=== PATIENT | male | born 1955 | race Hispanic/Latino ===

== ENCOUNTER → 2019-08-01 | Outpatient (CLI) | payer MEDICARE ==
[~2019-08-01] MED LIST: GLIPIZIDE5 MG PO; IOPAMIDOL 370 MG/ML 200 ML INFUS..BTL INJ ONE; METFORMIN HCL1000 MG PO; NEXIUM40 MG PO; SODIUM CHLORIDE 0.9% 50ML 50 ML ONE; VASOTEC10 M1 PO; ZOLOFT50 MG PO
[2019-08-01 09:03] LABS: BLOOD UREA NITROGEN 15 mg/dL (7-26); BUN/CREATININE RATIO 14 (6-25); CREATININE, SERUM 1.09 mg/dL (0.72-1.25); EST GLOMERULAR FILTRATION RATE > 60 ML/MIN (60-)
--- NOTE | 2019-08-01 16:01 | Diagnostic Imaging Report ---
History:Left year infection for 2 months Comparison studies:None Technique: Axial, coronal and sagittal images through the temporal bones. Intravenous contrast: Yes Dose modulation, iterative reconstruction, and/or weight based adjustment of the mA/kV was utilized to reduce the radiation dose to as low as reasonably achievable. Findings: Right: External auditory canal: Clear and patent Tympanic membrane: Barely visualized and unremarkable. Middle ear and mastoid cavities: Clear. Mastoid air cells: Clear Ossicles: The malleus, incus and stapes are grossly intact. Cochlea, vestibule, internal acoustic canals: Grossly intact. Semicircular canals: Grossly intact. Not dehiscent. Endolymphatic duct: Normal in size. No dilated. Petrous apex: Unremarkable, not aerated. Facial canal: No abnormalities in the labyrinthine, tympanic or mastoid segments. Left: External auditory canal: Clear and patent Tympanic membrane: Barely visualized and unremarkable. Middle ear and mastoid cavities: Clear. Mastoid air cells: Partial opacification of few air cells Ossicles: The malleus, incus and stapes are grossly intact. Cochlea, vestibule, internal acoustic canals: Grossly intact. Semicircular canals: Grossly intact. Not dehiscent. Endolymphatic duct: Normal in size. No dilated. Petrous apex: Unremarkable, not aerated. Facial canal: No abnormalities in the labyrinthine, tympanic or mastoid segments. IMPRESSION: Right temporal bone: 1. Normal Left temporal bone: 1. Minimal nonspecific inflammatory changes of the mastoid air cells 2. No other abnormality Signed by: DR Jomar Harrell M.D. on 08/01/2019 3:58 PM
== END ==
LOC: CT 08:13
PROVIDERS: ATTEND Otolaryngology
DX: H70.12 Chronic mastoiditis, left ear (principal)
CPT/HCPCS: 36415; 70481; 82565; 84520; Q9967

== ENCOUNTER 2020-03-30 18:06 | Observation (INO) | payer MEDICARE, OTHER ==
[~2020-03-30] VITALS: Ht 162.6 cm; Wt 78.9 kg
[~2020-03-30 18:06] MED LIST changes: -IOPAMIDOL 370 MG/ML 200 ML INFUS..BTL INJ ONE; -SODIUM CHLORIDE 0.9% 50ML 50 ML ONE
--- OUTSIDE RECORDS SUMMARY | 2020-03-30 18:08 | XMS REPORT ---
Author Author [facility] t Organization [facility] Address [address] [place] [id number] Phone Unavailable Care Team Providers Care Political Researcher Name Role Phone KYLAH LEACH Unavailable Payers Payer Name Policy Type Policy Number Effective Date Expiration Date S ource Problems This patient has no known problems. Allergies, Adverse Reactions, Alerts Allergy Name Allergy Type Status Severity Reaction(s) Onset Date Inacti ve Date Treating Clinician Comments Source No Known Allergies DA Active U 2019-07-08 00:00:00 [facility] Medications This patient has no known medications. Procedures This patient has no known procedures. Results Test Description Test Time Test Comments Results Result Comments Source [facility] W 2019-08-01 15:54:00 [facility] [address] [place], [place] [address] Patient Name: SUE GAMING MR #: [id number] : 1955 Age/Sex: 64/M Req #: [id number] Adm Physician: Ordered by: HAYLEE CHUN, KYLAH CHUN Report #: [id number] Location: [place] Room/Bed: Procedure: [id number] CT/CT IACS W Exam Date: 08/01/19 Exam Time: 0920 REPORT STATUS: Signed History:Left year infection for 2 months Comparison studies:None Technique: Axial, coronal and sagittal images through the temporal bones. Intravenous contrast: Yes Dose modulation, iterative reconstruction, and/or weight based adjustment of the mA/kV was utilized to reduce the radiation dose to as low as reasonably achievable. Findings: Right: External auditory canal: Clear and patent Tympanic membrane: Barely visualized and unremarkable. Middle ear and mastoid cavities: Clear. Mastoid air cells: Clear Ossicles: The malleus, incus and stapes are grossly intact. Cochlea, vestibule, internal acoustic canals: Grossly intact. Semicircular canals: Grossly intact. Not dehiscent. Endolymphatic duct: Normal in size. No dilated. Petrous apex: Unremarkable, not aerated. Facial canal: No abnormalities in the labyrinthine, tympanic or mastoid segments. Left: External auditory canal: Clear and patent Tympanic membrane: Barely visualized and unremarkable. Middle ear and mastoid cavities: Clear. Mastoid air cells: Partial opacification of few air cells Ossicles: The malleus, incus and stapes are grossly intact. Cochlea, vestibule, internal acoustic canals: Grossly intact. Semicircular canals: Grossly intact. Not dehiscent. Endolymphatic duct: Normal in size. No dilated. Petrous apex: Unremarkable, not aerated. Facial canal: No abnormalities in the labyrinthine, tympanic or mastoid segments. IMPRESSION: Right temporal bone: 1. Normal Left temporal bone: 1. Minimal nonspecific inflammatory changes of the mastoid air cells 2. No other abnormality Signed by: DR Jomar Harrell M.D. on 08/01/2019 3:58 PM Dictated By: JOMAR VEGA MD [id number] Transcribed By: JANY on 08/01/19 704 COPY TO: KYLAH LEACH
--- NOTE | 2020-03-30 18:32 | Emergency Department Note ---
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 Any updates have been documented here. (KASSANDRA SCHMITT NP) Past Medical History Recent Fever: No Clinical Suspicion of Infectio: No New/Unexplained Change in Ment: No Past Medical History: Diabetes Other Surgery: R SHOULDER, I&D ABSCESS TO L ARM (KASSANDRA SCHMITT NP) Social History Smoking Cessation: Never Smoker Alcohol Use: None Any Illegal Drug Use: No TB Exposure/Symptoms: No Physically hurt or threatened: No (KASSANDRA SCHMITT NP) Family History Family history of heart diseas: No (KASSANDRA SCHMITT NP) Other Last Tetanus: UNK Any Pre-Existing Lines (PICC,: No (KASSANDRA SCHMITT NP) Review of Systems Review of Systems Constitutional: no symptoms EENTM: no symptoms Cardiovascular: no symptoms Respiratory: no symptoms Gastrointestinal: no symptoms Genitourinary: other (left testicle pain / laceration groin ) Musculoskeletal: no symptoms Neurological: no symptoms Psychological: no symptoms Endocrine: no symptoms Hematological/Lymphatic: no symptoms Review of other systems All other systems reviewed and negative. (KASSANDRA SCHMITT NP) Physical Exam Related Data Allergies: Coded Allergies: No Known Drug Allergies (Verified Allergy, Unknown, 05/02/09) Vital signs reviewed: Yes (KASSANDRA SCHMITT NP) Physical Exam CONSTITUTIONAL Constitutional: well-developed, well-nourished HENT HENT: normocephalic, atraumatic, oropharynx clear/moist, nose normal HENT L/R: left ext ear normal, right ext ear normal EYES Eyes: PERRL, conjunctivae normal NECK Neck: ROM normal PULMONARY Pulmonary: effort normal, breath sounds normal CARDIOVASCULAR Cardiovascular: regular rhythm, heart sounds normal, capillary refill normal, normal rate GASTROINTESTINAL Abdominal: soft, nontender, bowel sounds normal GENITOURINARY Genitourinary: other (noted laceration x 2 to scrotum and left testicle pain noted ecchymosis to left side scrotum ttp left testicle ) SKIN Skin: warm, dry MUSCULOSKELETAL Musculoskeletal: ROM normal NEUROLOGICAL Neurological: alert, oriented x 3, no gross motor or sensory deficits PSYCHOLOGICAL Psychological: mood/affect normal, judgement normal (KASSANDRA SCHMITT NP) Results Laboratory Laboratory Laboratory Tests Test 03/30/20 18:38 White Blood Count 11.28 x10e3/uL (4.8-10.8) Red Blood Count 4.27 x10e6/uL (4.3-5.7) Hemoglobin 13.7 g/dL (14.0-18.0) Hematocrit 39.2 % (38.2-49.6) Mean Corpuscular Volume 91.8 fL (81-99) Mean Corpuscular Hemoglobin 32.1 pg (28-32) Mean Corpuscular Hemoglobin Concent 34.9 g/dL (31-35) Red Cell Distribution Width 12.2 % (11.7-14.4) Platelet Count 173 x10e3/uL (140-360) Neutrophils (%) (Auto) 80.7 % (38.7-80.0) Lymphocytes (%) (Auto) 13.4 % (18.0-39.1) Monocytes (%) (Auto) 4.6 % (4.4-11.3) Eosinophils (%) (Auto) 0.5 % (0.0-6.0) Basophils (%) (Auto) 0.3 % (0.0-1.0) Neutrophils # (Auto) 9.1 (2.1-6.9) Lymphocytes # (Auto) 1.5 (1.0-3.2) Monocytes # (Auto) 0.5 (0.2-0.8) Eosinophils # (Auto) 0.1 (0.0-0.4) Basophils # (Auto) 0.0 (0.0-0.1) Absolute Immature Granulocyte (auto 0.06 x10e3/uL (0-0.1) Urine Color Yellow (YELLOW) Urine Clarity Sl cloudy (CLEAR) Urine pH 5.5 (5 - 7) Urine Specific Bunn >=1.030 (1.010-1.025) Urine Protein Negative (NEGATIVE) Urine Glucose (UA) 2+ (NEGATIVE) Urine Ketones Negative (NEGATIVE) Urine Blood Negative (NEGATIVE) Urine Nitrite Negative (NEGATIVE) Urine Bilirubin Negative (NEGATIVE) Urine Urobilinogen 0.2 mg/dL (0.2 - 1) Urine Leukocyte Esterase Negative (NEGATIVE) Urine RBC 0-5 /HPF (0-5) Urine WBC 0-5 /HPF (0-5) Urine Epithelial Cells Few /LPF (NONE) Urine Bacteria Rare /HPF (NONE) Sodium Level 135 mmol/L (136-145) Potassium Level 3.6 mmol/L (3.5-5.1) Chloride Level 102 mmol/L (98-107) Carbon Dioxide Level 19 mmol/L (22-29) Anion Gap 17.6 mmol/L (8-16) Blood Urea Nitrogen 21 mg/dL (7-26) Creatinine 1.37 mg/dL (0.72-1.25) Estimat Glomerular Filtration Rate 52 ML/MIN (60-) BUN/Creatinine Ratio 15 (6-25) Glucose Level 335 mg/dL (74-118) Calcium Level 9.4 mg/dL (8.4-10.2) Total Bilirubin 0.4 mg/dL (0.2-1.2) Aspartate Amino Transf (AST/SGOT) 23 IU/L (5-34) Alanine Aminotransferase (ALT/SGPT) 49 IU/L (0-55) Alkaline Phosphatase 99 IU/L (40-150) Total Protein 7.6 g/dL (6.5-8.1) Albumin 4.3 g/dL (3.5-5.0) Globulin 3.3 g/dL (2.3-3.5) Albumin/Globulin Ratio 1.3 (0.8-2.0) Lab results reviewed: Yes (KASSANDRA SCHMITT NP) Imaging Impressions IMPRESSION: The scrotum is only partially included in the CT. Edema in the partially visualized scrotum without foreign body. Signed by: Kj Summers DO on 03/30/2020 8:07 PM (KASSANDRA SCHMITT NP) Procedures Laceration Laceration: Laceration 1 Site: scrotum Size (cm): 6 Description: linear, flap, clean Depth: simple, single layer Local anesthesia: lidocaine 1% Amount of anesthesia (mL): 8 Pre-repair: wound exposed, irrigated extensively Skin layer closed with: nylon Size (cm): 4-0 Number of sutures: 15 Technique: simple, interrupted Additional comments pt donta well non adhering dressing applied (KASSANDRA SCHMITT NP) Critical Care Time Subsequent provider I assumed direction of critical care for this patient from another provider of my specialty. (KASSANDRA SCHMITT NP) Assessment & Plan Reassessment Reassessment time: 18:32 Reassessment This is a 65 year old male .c/o trauma to groin sts grinding wheel cam e apart striking him in the groin c/o lac to scrotum and tenderness to left testicle Dr Durham spoke w/ Dr Tran for consult - ct pelvis r/o f/b / us testicle if ok repair lac and f/u in office Dr Durham discussed pt presentation and plan of care w/ Dr Gore (KASSANDRA SCHMITT NP) Assessment & Plan Final Impression: (1) LACERATION W/O FOREIGN BODY OF SCROTUM AND TESTES, INIT (2) CONTUSION OF SCROTUM AND TESTES, INITIAL ENCOUNTER Assessment & Plan Discussed results plan of care and wound care instructions and f/u instructions plan: 1. follow up with urologist Wednesday without fail 2. keep wound clean and dry 3. return to ed as needed 4. tylenol and motrin as needed 5. sutures out in 7 days 6. bactrim t#3 (KASSANDRA SCHMITT NP) Final Impression: (1) CONTUSION OF SCROTUM AND TESTES, INITIAL ENCOUNTER (2) LACERATION W/O FOREIGN BODY OF SCROTUM AND TESTES, INIT (3) LEFT TESTICULAR PAIN Assessment & Plan IMPRESSION: 1. No evidence of testicular torsion. 2. Inferior left testicular pole laceration/rupture with 0.7 cm intratesticular hematoma. 3. Left epididymal contusion. Patient's ultrasound findings with urologist, concerns of rupture of left testicular pole that will require operative repair. Patient kept nothing by mouth and admitted for surgical repair tomorrow morning. (MELODIE GORE DO) Depart Disposition: HOME, SELF-[facility] Meds Reported Medications Sertraline Hcl (ZOLOFT) 50 Mg Tablet, 1.5 TAB PO DAILY 09/16/12 Esomeprazole Magnesium (NEXIUM) 40 Mg Capsule.dr, 1 TAB PO DAILY 09/16/12 Enalapril Maleate (VASOTEC) 10 Mg Tablet, 1 TAB PO DAILY 09/16/12 Glipizide (GLIPIZIDE) 5 Mg Tablet, 1 TAB PO BID 09/16/12 Metformin Hcl (METFORMIN HCL) 1,000 Mg Tablet, 1 TAB PO DAILY 09/16/12 KASSANDRA SCHMITT NP March 30, 2020 18:32 MELODIE GORE DO March 30, 2020 23:44
[2020-03-30] MEDS ORDERED: TRAMADOL HCL 50 MG TAB PO ONE (18:45)
[2020-03-30 19:11] LABS: BASOPHILS % 0.3 % (0.0-1.0); EOSINOPHILS # (AUTO) 0.1 (0.0-0.4); EOSINOPHILS % 0.5 % (0.0-6.0); HEMATOCRIT 39.2 % (38.2-49.6); HEMOGLOBIN 13.7 g/dL (14.0-18.0); LYMPHOCYTES # (AUTO) 1.5 (1.0-3.2); LYMPHOCYTES % 13.4 % (18.0-39.1); MEAN CORPUSCULAR HEMOGLOBIN 32.1 pg (28-32); MEAN CORPUSCULAR HGB CONC 34.9 g/dL (31-35); MEAN CORPUSCULAR VOLUME 91.8 fL (81-99); MONOCYTES # (AUTO) 0.5 (0.2-0.8); MONOCYTES % 4.6 % (4.4-11.3); NEUTROPHILS # (AUTO) 9.1 (2.1-6.9); NEUTROPHILS % 80.7 % (38.7-80.0); PLATELET COUNT 173 x10e3/uL (140-360); RED BLOOD COUNT 4.27 x10e6/uL (4.3-5.7); RED CELL DISTRIBUTION WIDTH 12.2 % (11.7-14.4)
[2020-03-30 19:15] LABS: CLARITY,URINE SL CLOUDY (CLEAR); COLOR,URINE YELLOW (YELLOW)
--- NOTE | 2020-03-30 19:15 | NUR ---
report given to Antony LITTLEJOHN
[2020-03-30 19:16] LABS: BILIRUBIN,URINE NEGATIVE (NEGATIVE); KETONES,URINE NEGATIVE (NEGATIVE); LEUKOCYTE ESTERASE ,URINE NEGATIVE (NEGATIVE); NITRITE,URINE NEGATIVE (NEGATIVE); PROTEIN,URINE DIPSTICK NEGATIVE (NEGATIVE); URINE UROBILINOGEN 0.2 mg/dL (0.2 - 1)
[2020-03-30 19:25] LABS: BACTERIA,URINE RARE /HPF; RBC,URINE 0-5 /HPF (0-5); WBC,URINE (MAN) 0-5 /HPF (0-5)
[2020-03-30 19:26] LABS: EPITHELIAL CELLS,URINE FEW /LPF
[2020-03-30 19:29] LABS: ALBUMIN 4.3 g/dL (3.5-5.0); ALBUMIN/GLOBULIN RATIO 1.3 (0.8-2.0); ANION GAP 17.6 mmol/L (8-16); CALCIUM 9.4 mg/dL (8.4-10.2); CREATININE, SERUM 1.37 mg/dL (0.72-1.25); POTASSIUM 3.6 mmol/L (3.5-5.1)
--- NOTE | 2020-03-30 20:11 | Diagnostic Imaging Report ---
EXAM: CT Pelvis WITHOUT contrast INDICATION: Scrotal laceration COMPARISON: None. TECHNIQUE: Pelvis were scanned utilizing a multidetector helical scanner from the iliac crest to the pubic symphysis without administration of IV contrast. Coronal and sagittal reformations were obtained. Routine protocol was performed. IV CONTRAST: None ORAL CONTRAST: None COMPLICATIONS: None RADIATION DOSE: Total DLP: 252 mGy*cm Estimated effective dose: (DLP x 0.015 x size factor) mSv CTDIvol has been reviewed. It is below the limits set by the Radiation Protocol Committee (RPC). Dose modulation, iterative reconstruction, and/or weight based adjustment of the mA/kV was utilized to reduce the radiation dose to as low as reasonably achievable. FINDINGS: LINES and TUBES: None. GI TRACT: No abnormal distention, wall thickening, or evidence of bowel obstruction. Appendix is normal. PELVIC ORGANS/BLADDER: Mild prostatomegaly. Unremarkable. LYMPH NODES: No lymphadenopathy. VESSELS: There is mild atherosclerotic disease in the aorta and major arterial branches. PERITONEUM / RETROPERITONEUM: No free air or fluid. BONES: Mild degenerative changes in the spine hips and pelvis.. SOFT TISSUES: The scrotum is only partially included in the CT. Edema in the partially visualized scrotum without foreign body. Slightly retractile testes. IMPRESSION: The scrotum is only partially included in the CT. Edema in the partially visualized scrotum without foreign body. Signed by: Kj Summers DO on 03/30/2020 8:07 PM
[2020-03-30] MEDS ORDERED: TETRACAINE HCL 0.5% OPTH SOLN 4 ML BTL OP ONE (20:30)
[2020-03-30] MEDS ORDERED: LIDOCAINE HCL 1% LOCAL INJ 20 ML VIAL INJ ONE (20:30)
[2020-03-30] MEDS ORDERED: TETANUS/DIPHTHERIA TOX ADULT 0.5 ML SYR ONE (20:39)
[2020-03-30] MEDS ORDERED: TETANUS/DIPHTHERIA TOX ADULT 0.5 ML SYR IM ONE (20:45)
[2020-03-30] MEDS ORDERED: NEOMYCIN/POLYMYX/BACITR OINT 0.9 GM PKT ONE (21:05)
[2020-03-30] MEDS ORDERED: NEOMYCIN/POLYMYX/BACITR OINT 0.9 GM PKT TOP ONE (21:15)
--- NOTE | 2020-03-30 21:49 | Diagnostic Imaging Report ---
EXAM: Scrotal Ultrasound with Duplex INDICATION: Trauma COMPARISON: Same day pelvis CT TECHNIQUE: Transverse and longitudinal images were obtained of the scrotum with grayscale imaging, color Doppler and spectral waveform analysis. FINDINGS: Right testis: Size: 4.1 x 2 x 2.9 cm, normal in size. Echogenicity: Normal Mass/Cysts: None Left testis: Size: 3.9 x 2 x 4.7 cm, normal in size. Echogenicity: Heterogeneous, the inferior pole tunica albuginea has a focal outward bulge, in the inferior pole has an internal heterogeneous 0.7 cm round hypoechoic and adjacent increased echogenicity. Epididymis: Appearance: A large hyperechoic heterogeneous left epididymis. Mass/Cysts: None Extratesticular: Masses: None Hydrocele: None Varicocele: None Doppler: Decreased flow in the left testicle Skin thickening of the left scrotum. IMPRESSION: 1. No evidence of testicular torsion. 2. Inferior left testicular pole laceration/rupture with 0.7 cm intratesticular hematoma. 3. Left epididymal contusion. Signed by: Kj Summers DO on 03/30/2020 9:46 PM
[2020-03-30] MEDS ORDERED: MORPHINE SULFATE 2 MG/ML SYR 1ML IV PRN (22:15)
[2020-03-30] MEDS ORDERED: ONDANSETRON HCL INJ 2MG/ML 2ML 2 MG/ML VIAL IV PRN (22:15)
[2020-03-31] VITALS (9 sets, daily range): BP systolic 122–155; BP diastolic 68–84
[2020-03-31] MEDS ORDERED: LEVOFLOXACIN 500MG/D5W 100ML 100 ML IV SCH (00:15)
[2020-03-31] MEDS ORDERED: ONDANSETRON HCL INJ 2MG/ML 2ML 2 MG/ML VIAL IV PRN (00:45)
[2020-03-31] MEDS ORDERED: SODIUM CHLORIDE 0.9% 250ML 250 ML ONE (01:34)
[2020-03-31] MEDS: LEVOFLOXACIN 500MG/D5W 100ML 100 ML IV SCH (01:40)
[2020-03-31] MEDS: CLINDAMYCIN 300MG 50 ML IV SCH ×3 (05:50→22:59)
[2020-03-31] MEDS ORDERED: CLINDAMYCIN 300MG 50 ML IV SCH (06:00)
--- NOTE | 2020-03-31 06:50 | NUR ---
Received patient lying in bed with eyes open. Currently NPO in preparation for procedure with Dr. Katja Aleman. Respiration even and unlabored without SOB. Call light in reach.
[2020-03-31] MEDS ORDERED: BUPIVACAINE HCL 0.5% INJ 30 ML VIAL INJ ONE (08:08)
--- NOTE | 2020-03-31 08:15 | NUR ---
Patient transported for surgery at this time.
[2020-03-31] MEDS ORDERED: DEXTROSE 50% SYRINGE 50 ML IV PRN (08:45)
[2020-03-31] MEDS ORDERED: BACITRACIN ZINC 15 GM OINT ONE (09:54)
[2020-03-31] MEDS ORDERED: ACETAMINOPHEN/CODEINE 300MG - 30MG TAB PO PRN (11:00)
[2020-03-31] MEDS ORDERED: MORPHINE SULFATE INJ 4 MG/ML INJ 1ML ONE (11:05)
--- NOTE | 2020-03-31 11:09 | NUR ---
Patient is transported back from surgery. Respiration even and unlabored without SOB. Patient is drowsy at this time. at bedside. Call light in reach.
[2020-03-31] MEDS: INSULIN LISPRO 100 UNIT/1 ML 3ML VIAL SQ SCH ×3 (11:30→20:51)
[2020-03-31] MEDS: METFORMIN HCL 500 MG TAB PO SCH ×2 (12:08→18:40)
[2020-03-31] MEDS: SODIUM CHLORIDE 0.9% 1000ML 1,000 ML IV SCH ×3 (12:08→22:59)
--- NOTE | 2020-03-31 15:33 | Consultation ---
DATE OF CONSULTATION: 03/31/2020 Urology Consultation REASON FOR CONSULTATION: Blunt trauma to the scrotum with scrotal lacerations. HISTORY OF PRESENT ILLNESS: Jeff Garcia is a 65-year-old man with no previous urological history. He denies hematuria, dysuria, urinary tract infections or urolithiasis. Denies any lower tract obstructive symptoms or any lower tract irritative symptoms. The patient was building and remodeling a porch and was utilizing a blade grinder, the blade grinder caused something to slip and a piece of stone was launched toward his scrotum resulting in an injury. He reported to the emergency room. The Emergency Department called me with the injury. I guided them in the radiology testing. I instructed them to get an ultrasound as well as a KUB. The emergency room physician preferred a CT to look for foreign body. Despite the emergency room physician writing to evaluate the scrotum, did not evaluate the scrotum adequately. The patient has 3 children. Does not desire any more fertility. He understands this may result in an orchiectomy. PAST MEDICAL AND SURGICAL HISTORY: 1. Status post right shoulder surgery. 2. Status post left elbow surgery. 3. Diabetes mellitus. 4. Hypercholesterolemia, but the patient developed muscle pains with statin. SOCIAL HISTORY: The patient denies smoking, ethanol, and drug use. 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 ALLERGIES: NONE KNOWN. CURRENT MEDICATIONS: Please refer to the MAR. REVIEW OF SYSTEMS: Discussed as above in the history of present illness and past medical history, otherwise negative for all other systems. FAMILY HISTORY: Noncontributory to the active urological problems. PHYSICAL EXAMINATION: GENERAL: Healthy-appearing 65-year-old man lying in a stretcher in no apparent distress. VITAL SIGNS: He is currently afebrile. Vital signs are stable. ABDOMEN: Soft, nondistended, nontender without costovertebral angle tenderness. Kidneys not palpable without hepatosplenomegaly. The patient is obese. GENITOURINARY: The right testis is nontender and mobile, although is retractile. The left testis is not well discernible, it is tender, it is enlarged and it seems to be withdrawn into the scrotal neck. The patient has a normal uncircumcised male phallus with normal meatus without any lesion. Digital rectal examination is deferred at the present time. For the remaining physical examination systems, please refer to the ERT sheet and the history and physical. LABORATORY STUDIES: The patient's creatinine in 2010 was 0.99. The patient's creatinine yesterday was 1.37. The patient's sodium was low at 135. His glucose was elevated at 335 upon presentation. White blood [place] [address], hemoglobin 13.7, platelets are normal at 173,000. Urinalysis significant for 2+ glucose, it is otherwise unremarkable. Testicle ultrasound showed no evidence of torsion and there was an inferior left testicular testicular hematoma and a left epididymal contusion. CT of the pelvis showed retractile testes and only partially evaluated scrotum and prostatomegaly was identified on CT as well. ASSESSMENT: 1. Left testicular injury with 3 scrotal lacerations following blunt trauma. 2. Leukocytosis. 3. Obesity. 4. Anemia. 5. Hyponatremia. 6. Hopefully acute renal failure. 7. Acute renal insufficiency. 8. Glycosuria. 9. Benign prostatic hyperplasia. PLAN: 1. I defer the hematological and electrolyte abnormalities to the admitting physician. 2. I discussed informed consent for surgery with the patient. The patient agrees to a left scrotal exploration with repair versus removal of his testicle. He understands the risks of bleeding, infection, injury to adjacent structures, infertility, hypogonadism, need for additional procedures, need for hormone replacement therapy. He also understands the risks of anesthesia, which he was encouraged to discuss with the anesthesiologist preoperatively. He understood all these risks and he elected to proceed with surgery as planned. Further recommendations will be made following obtaining surgical result. Elliot Aleman MD [place]/MODL /[id number] cc: Emily Galeano MD
--- NOTE | 2020-03-31 16:34 | Operative Report ---
DATE OF PROCEDURE: 03/31/2020 SURGEON: Elliot Aleman MD PREOPERATIVE DIAGNOSIS: Blunt trauma to the scrotum. POSTOPERATIVE DIAGNOSES: 1. Blunt trauma to the scrotum. 2. Complete and devastating left testicular rupture. 3. Irregular scrotal lacerations totaling 11 cm in length. OPERATION PERFORMED: 1. Removal of numerous nonabsorbable sutures placed by the emergency room in the patient's scrotum. 2. Left scrotal exploration with orchiectomy. 3. Regional nerve block (separate procedure performed for postoperative pain control and not required for the actual performance of the surgery done under general anesthesia). 4. Complex repair of three irregular scrotal lacerations totaling 11 cm in length. ANESTHESIA: General. COMPLICATIONS: None. CLINICAL SUMMARY: Please refer to consultation dictation from the same date. OPERATIVE PROCEDURE IN DETAIL: Informed consent was verified. Jeff Garcia was properly identified and taken to the operating room, placed on the operating table in supine position. Anesthesia was uneventfully begun. The countless nonabsorbable sutures that were placed by the emergency department were removed utilizing surgical loupes and an 11 blade scalpel. This exercise took at least 15 minutes. The patient's genitalia were then shaved, prepared, and draped in usual sterile fashion. A left scrotal neck incision was made carried through the skin. There was hematoma throughout the various layers of the scrotum. We isolated the proximal edge of the testis and the distal spermatic cord and then dissected more inferiorly. As soon as we opened the tunica vaginalis, numerous cold blood clots were removed. We delivered the testicle. The testicle is completely ruptured. There were countless jagged lacerations of the testicle. It had completely everted and there was absolutely no way to piecemeal. This testicle's seminiferous tubules were both disjointed and disconnected and filling the cavity. Reconstructing this testicle would only result in atrophy and potentially could result in long-term pain. The probability of this testis functioning well is very low. Therefore, we isolated the spermatic cord, divided it into two packets. We suture ligated each packet and then just proximal to that freehand tied, ligated utilizing #1 Vicryl. We then divided the spermatic cord. Marcaine without epinephrine was utilized to infiltrate the spermatic cord proximal to the region where we were working. This regional block was performed for postoperative pain control and not prior to actual performance of surgery, which was done under general anesthesia. Copious irrigation was performed. Verification of hemostasis performed. The V[place] drain was placed through a separate stab incision in the dependent most portion of the left hemiscrotum and secured to the skin with a chromic suture. We infiltrated the incision with Marcaine without epinephrine for postoperative pain control. The patient's incision was then approximated in 2 layers utilizing 3-0 chromic suture. The three jagged and irregular incisions of the scrotum totaling 11 cm were then approximated to the best of our abilities utilizing 3-0 chromic suture as well. Remarkably cosmetically appropriate reconstruction was achieved. These lacerations were not sharp or rather a blunt type of explosion of the skin judging from the testis as well as the lacerations as well as the contained hematoma in the perineum. This trauma was rather forceful. We thoroughly irrigated all the incisions repeatedly upon closure. Bacitracin ointment and nonadherent dressing and 4x4s were placed and held in place with mesh panties and the patient was then uneventfully reversed from anesthesia and taken to recovery room in stable condition. There were no complications to the procedure. The patient tolerated the procedure well. Sponge, needle, and instrument counts were of course correct x2 at the end of the case. Estimated blood loss was minimal. We will admit the patient onto an inpatient status for intravenous antibiotics and serial examinations. Elliot Aleman MD [facility]/MODL /[id number] cc: Emily Galeano MD
--- NOTE | 2020-03-31 18:50 | NUR ---
Report given to night shift supervisor. Respiration even and unlabored without SOB. Call light in reach.
--- NOTE | 2020-03-31 23:00 | NUR ---
[place] drain in place on the surgical site. Mild bleeding noted. Dressing changed.
[2020-04-01] MEDS: MORPHINE SULFATE 2 MG/ML SYR 1ML IV PRN ×3 (00:08→11:12)
[2020-04-01 00:34] VITALS: BP 130/75
[2020-04-01] MEDS: LEVOFLOXACIN 500MG/D5W 100ML 100 ML IV SCH (01:09)
[2020-04-01] MEDS: SODIUM CHLORIDE 0.9% 1000ML 1,000 ML IV SCH (04:45)
[2020-04-01 05:11] LABS: BASOPHILS % 0.3 % (0.0-1.0); EOSINOPHILS % 0.6 % (0.0-6.0); HEMATOCRIT 32.9 % (38.2-49.6); HEMOGLOBIN 11.1 g/dL (14.0-18.0); LYMPHOCYTES # (AUTO) 1.6 (1.0-3.2); LYMPHOCYTES % 24.6 % (18.0-39.1); MEAN CORPUSCULAR HEMOGLOBIN 32.6 pg (28-32); MEAN CORPUSCULAR HGB CONC 33.7 g/dL (31-35); MEAN CORPUSCULAR VOLUME 96.8 fL (81-99); MONOCYTES # (AUTO) 0.5 (0.2-0.8); NEUTROPHILS # (AUTO) 4.4 (2.1-6.9); PLATELET COUNT 130 x10e3/uL (140-360); RED CELL DISTRIBUTION WIDTH 12.4 % (11.7-14.4)
[2020-04-01 05:35] LABS: ANION GAP 11.7 mmol/L (8-16); BLOOD UREA NITROGEN 13 mg/dL (7-26); BUN/CREATININE RATIO 13 (6-25); CALCIUM 8.2 mg/dL (8.4-10.2); CARBON DIOXIDE 20 mmol/L (22-29); CHLORIDE 108 mmol/L (98-107); CREATININE, SERUM 0.97 mg/dL (0.72-1.25); EST GLOMERULAR FILTRATION RATE > 60 ML/MIN (60-); GLUCOSE 193 mg/dL (74-118); POTASSIUM 3.7 mmol/L (3.5-5.1); SODIUM 136 mmol/L (136-145)
[2020-04-01 05:44] VITALS: BP 129/72
[2020-04-01] MEDS: CLINDAMYCIN 300MG 50 ML IV SCH (06:13)
--- NOTE | 2020-04-01 07:01 | NUR ---
BEDSIDE SHIFT REPORT RECEIVED FROM UNPAID INTERN RN. PT AWAKE, ALERT, IN STABLE CONDITION.
[2020-04-01 08:05] VITALS: BP 144/74
[2020-04-01 08:10] VITALS: BP 144/74
[2020-04-01] MEDS: INSULIN LISPRO 100 UNIT/1 ML 3ML VIAL SQ SCH ×2 (08:15→12:24)
[2020-04-01] MEDS: METFORMIN HCL 500 MG TAB PO SCH (08:15)
[2020-04-01] MEDS ORDERED: ONDANSETRON HCL 4 MG ORAL DISINTEGRATING TAB PO PRN (10:30)
[2020-04-01 11:41] VITALS: BP 129/62
--- NOTE | 2020-04-01 15:14 | Discharge Summary ---
PRIMARY CARE PHYSICIAN: Emily Galeano MD. SEAFOOD PROCESS WORKER: Dr. Elliot Aleman. FINAL DIAGNOSES: 1. Blunt trauma of the left scrotal area with left scrotal laceration and also ruptured testis. 2. Status post left scrotal exploration with orchiectomy and repair of the laceration. Procedure was done by Dr. Elliot Aleman on March 31, 2020. 3. Baseline dyslipidemia, hypertension, and diabetes type 2, stable. DISCHARGE MEDICATIONS: Tylenol No. 3 p.r.n. and Bactrim DS one tablet twice a day for 14 days. DISCHARGE INSTRUCTIONS: For the patient to follow up with Dr. Elliot Aleman within a week. Discharge instruction to care of the surgical area. HOSPITAL COURSE: The patient is a 65 years male. Apparently, he was remodeling his porch and was utilizing a tool grinder. The tool grinder caught something and slipped, a piece of stone was launched toward his scrotum resulting in injury. The patient came to the emergency room for evaluation. The patient had multiple tests done. The patient subsequently underwent surgical exploration and found to have laceration to the left scrotal area and exploration of the that the patient had a ruptured testis. The patient subsequently has repair of the laceration and orchiectomy. The patient is otherwise stable. The area is clean with bruising, but stable. No significant swelling. The patient is comfortable at this time. The patient is cleared by Dr. Elliot Aleman for discharge home. The patient will be going home with Bactrim and Tylenol No. 3 as needed. He will resume his home medication. Resume his diet the same. He is allowed to have a shower tomorrow, clean with soap and water. The patient is to follow up with Dr. Elliot Aleman closely. If having increasing swelling or infection, the patient is instructed to come back to the emergency room for further evaluation. The patient is to follow up with Dr. Emily Galeano. MD DUSTIN Rivera/STEW /[id number]
== END 2020-04-01 14:15 | disposition home or self-care (01) ==
LOC: ER 18:06 → ERHOLD 22:25 → UNDODISOB 03-31 00:30 → MED/SURG 03-31 00:30
PROVIDERS: ADMIT Internal Medicine; ATTEND Internal Medicine
DX: S31.31XA Laceration without foreign body of scrotum and testes, initial encounter (principal); S30.22XA Contusion of scrotum and testes, initial encounter; W22.8XXA Striking against or struck by other objects, initial encounter; Y93.89 Activity, other specified; E11.9 Type 2 diabetes mellitus without complications; E78.5 Hyperlipidemia, unspecified; M19.90 Unspecified osteoarthritis, unspecified site; E66.9 Obesity, unspecified; D64.9 Anemia, unspecified; E87.1 Hypo-osmolality and hyponatremia; N17.9 Acute kidney failure, unspecified; N40.0 Benign prostatic hyperplasia without lower urinary tract symptoms; R81 Glycosuria; Z68.29 Body mass index [BMI] 29.0-29.9, adult; Z79.84 Long term (current) use of oral hypoglycemic drugs
CPT/HCPCS: 36415 ×3; 54520; 54670; 72192; 76870; 80048; 80053; 81001; 82948 ×2; 85025 ×2; 87086; 87635; 88305; 90471; 90714; 93976; 99284; G0378 ×3; J1956 ×2; J2001; J2270 ×2; J7030; J7050